=== PATIENT | female | born 1955 | race American Indian/Alaskan Native ===

== ENCOUNTER 2018-12-28 07:10 | Inpatient (IN) | payer MEDICARE ==
[2018-12-23 13:53] LABS: Basophils % (Auto) 0.8 % (0.0-1.8); Eosinophils # (Auto) 0.3 K/mm3 (0.0-0.4); Eosinophils % (Auto) 4.7 % (0.0-4.3); Hematocrit 39.1 % (30.3-42.9); Hemoglobin 12.3 gm/dl (10.1-14.3); Lymphocytes # (Auto) 2.3 K/mm3 (1.2-5.4); Lymphocytes % (Auto) 42.1 % (13.4-35.0); Mean Corpuscular HGB Conc 32 % (30-34); Monocytes # (Auto) 0.5 K/mm3 (0.0-0.8); Monocytes % (Auto) 9.5 % (0.0-7.3); Platelet Count 280 K/mm3 (140-440); Red Blood Count 5.59 M/mm3 (3.65-5.03); Red Cell Distribution Width 17.9 % (13.2-15.2)
[2018-12-23 13:56] LABS: Mean Corpuscular Volume 70 fl (79-97)
--- NOTE | 2018-12-23 13:56 | Anesthesia Consultation ---
Anesthesia Consult and Med Hx Date of service: 12/28/18 - Airway Anesthetic Teeth Evaluation: Good, Partials Mental/Hyoid Distance: Adequate Mallampati Class: Class II Intubation Access Assessment: Good - Pre-Operative Health Status ASA Pre-Surgery Classification: ASA3 Proposed Anesthetic Plan: General - Pulmonary Hx Asthma: Yes (Last used inhaler 2 weeks ago. Allergic) Hx Sleep Apnea: Yes (No CPAP) - Cardiovascular System Hx Hypertension: Yes (over 5 yrs) Hx Coronary Artery Disease: No (States had full w/u to get cleared for surgery and all good) - Central Nervous System Hx Psychiatric Problems: No - Gastrointestinal Hx Ulcer: Yes Hx Gastroesophageal Reflux Disease: Yes - Endocrine Hx Non-Insulin Dependent Diabetes: Yes - Hematic Hx Anemia: Yes - Other Systems Hx Cancer: No
[2018-12-23 14:13] LABS: Albumin 3.8 g/dL (3.9-5); Calcium 9.7 mg/dL (8.4-10.2); Chol/HDL Ratio 4.32 %
[~2018-12-28 07:10] MED LIST: CLEOCIN 600 MG/50 mL 600 MG/50 ML BAG IV NR; FLAGYL 500 MG/100 ML 500 MG/100 ML BAG IV NR; GENTAMICIN IV SCH
[2018-12-28] MEDS ORDERED: MORPHINE IV PRN (07:46)
[2018-12-28] MEDS ORDERED: ZOFRAN IV PRN ×2 (07:46→09:30)
[2018-12-28] MEDS ORDERED: REGLAN IV PRN (07:46)
[2018-12-28] MEDS ORDERED: LOVENOX SUB-Q NR (08:00)
[2018-12-28] MEDS ORDERED: LACTATED RINGERS 1,000 ML IV SCH (08:00)
[2018-12-28] MEDS ORDERED: LEVAQUIN 500MG/100ML 500 MG/100 ML BAG IV NR (08:00)
[2018-12-28] MEDS ORDERED: FLAGYL 500 MG/100 ML 500 MG/100 ML BAG IV NR (08:00)
--- NOTE | 2018-12-28 08:07 | Anesthesia Day of Surgery ---
Anesthesia Day of Surgery - Day of Surgery Patient Examined: Yes Patient H&P Reviewed: Yes Patient is NPO: Yes
[2018-12-28] MEDS ORDERED: PROVENTIL IH PRN (08:08)
[2018-12-28] MEDS ORDERED: NACL 0.9% 1000 ML 1,000 ML ONE ×2 (08:43→11:18)
[2018-12-28] MEDS ORDERED: VERSED IV NR (09:00)
[2018-12-28] MEDS ORDERED: TRANSDERM-SCOP TD ONE (09:17)
[2018-12-28] MEDS ORDERED: GENTAMICIN 200 MG in NACL 0.9% 100 ML IV NR (09:30)
[2018-12-28] MEDS ORDERED: APRESOLINE IV PRN (09:30)
[2018-12-28] MEDS ORDERED: DIPRIVAN 10 MG/ML IV ONE (09:34)
[2018-12-28] MEDS ORDERED: DILAUDID ONE (09:34)
[2018-12-28] MEDS ORDERED: ZEMURON IV ONE (09:35)
[2018-12-28] MEDS ORDERED: XYLOCAINE MPF 2% ONE (09:35)
[2018-12-28] MEDS ORDERED: MARCAINE-EPI 0.5%-1:200,000 INFILTRATI ONE ×2 (09:42→10:41)
[2018-12-28] MEDS ORDERED: XYLOCAINE 1% 20 mL ONE (09:43)
[2018-12-28] MEDS ORDERED: TRANSDERM-SCOP TD SCH (10:00)
[2018-12-28] MEDS ORDERED: NEO SYNEPHRINE/NS Syringe(OR USE) IV ONE (10:30)
[2018-12-28] MEDS ORDERED: NACL 0.9% IR ONE ×2 (10:41→10:43)
[2018-12-28] MEDS ORDERED: XYLOCAINE 1% 20 mL INFILTRATI ONE (10:42)
[2018-12-28] MEDS ORDERED: BLOXIVERZ ONE (11:58)
[2018-12-28] MEDS ORDERED: ROBINUL ONE ×2 (11:58)
[2018-12-28] MEDS ORDERED: ZOFRAN ONE (11:59)
[2018-12-28] MEDS: DILAUDID IV PRN ×3 (12:22→19:24)
[2018-12-28] MEDS ORDERED: NACL 0.9% 1000 ML 1,000 ML IV SCH (12:30)
[2018-12-28] MEDS: MYLICON PO PRN ×2 (12:42→19:24)
[2018-12-28] MEDS: TORADOL IV SCH ×3 (13:00→23:11)
[2018-12-28] MEDS: LACTATED RINGERS 1,000 ML IV SCH ×2 (13:06→22:39)
[2018-12-28] MEDS: LOVENOX SUB-Q SCH (13:55)
--- NOTE | 2018-12-28 14:40 | Post Anesthesia Evaluation ---
- Post Anesthesia Evaluation Patient Participated: Yes Airway Patent: Yes Stable Respiratory Function: Yes Nausea/Vomiting: No Temp > 96.8F: Yes Pain Manageable: Yes Adequeate Hydration: Yes Anesthesia Complications: No Block Receding Appropriately: Not Applicable Patient on Ventilator: No
[2018-12-28] MEDS: GLUCOPHAGE PO SCH (16:25)
[2018-12-29] MEDS: DILAUDID IV PRN (03:01)
[2018-12-29] MEDS: TORADOL IV SCH ×2 (05:35→10:25)
[2018-12-29 06:15] LABS: Basophils % (Auto) 0.5 % (0.0-1.8); Eosinophils # (Auto) 0.1 K/mm3 (0.0-0.4); Eosinophils % (Auto) 0.7 % (0.0-4.3); Hematocrit 31.9 % (30.3-42.9); Lymphocytes # (Auto) 1.7 K/mm3 (1.2-5.4); Lymphocytes % (Auto) 22.5 % (13.4-35.0); Mean Corpuscular HGB Conc 34 % (30-34); Mean Corpuscular Volume 90 fl (79-97); Monocytes # (Auto) 0.6 K/mm3 (0.0-0.8); Monocytes % (Auto) 7.7 % (0.0-7.3); Platelet Count 198 K/mm3 (140-440); Red Blood Count 3.53 M/mm3 (3.65-5.03); Red Cell Distribution Width 14.7 % (13.2-15.2)
[2018-12-29 06:43] LABS: Calcium 8.6 mg/dL (8.4-10.2)
--- NOTE | 2018-12-29 06:55 | Discharge Summary ---
Providers - Providers Date of Admission: 12/28/18 07:10 Date of discharge: 12/29/18 Attending physician: BASIM CORREA Primary care physician: LEONORA YAÑEZ Hospitalization Reason for admission: postop Condition: Good Procedures: 12/28/18: Laparoscopic partial gastrectomy with biliopancreatic limb lengthening Hospital course: 63F admitted after her operation for routine postop care. She was managed on the general surgical floor. She had no major issues overnight, but did c/o shoulder, gas, and neck pain POD1. Patient requested lortab prescription but she already got a prescription for pain medication from the office. She was advised to take extra-strength Tylenol after her pain medication ran out. She tolerated a CLD, ambulated, and was dc home in stable condition. Disposition: DC-01 TO HOME OR SELFCARE Core Measure Documentation - Palliative Care Palliative Care/ Comfort Measures: Not Applicable - Core Measures Any of the following diagnoses?: none - VTE Discharge Requirements Deep Vein Thrombosis/Pulmonary Embolism Present on Admission: No - Acute RI Discharge Requirements Aspirin at discharge: No Reason for no aspirin on DC: Surgical contraindication - Heart Failure Discharge Requirements VIOLET/ARB for LVSD if EF <40%: Not Applicable - Stroke Discharge Requirements Statin for LDL = or >70 mg/dl on DC: Not Applicable Exam - Physical Exam Narrative exam: Gen: AAO, NAD Heart: RRR Lungs: Clear Abd: Obese, soft, NT, ND. Bandages c/d/i. Ext: No LE Edema - Constitutional Vitals: Temp Pulse Resp BP Pulse Ox 98.7 F 65 20 125/52 97 12/29/18 00:23 12/29/18 00:23 12/29/18 00:23 12/29/18 00:23 12/29/18 00:23 Plan Diet: clear liquids Wound: keep clean and dry Special Instructions: no heavy lifting Additional Instructions: Fu as scheduled with Dr Correa Follow up with: LEONORA YAÑEZ MD [Primary Care Provider] - 7 Days
[2018-12-29 07:02] LABS: Bilirubin,Urine NEG (Negative); Blood,Urine NEG (Negative); Color,Urine Yellow (Yellow); Mucus,Urine FEW /HPF; Protein,Urine <15 mg/dL mg/dL (Negative); Urobilinogen,Urine < 2.0 mg/dL (<2.0)
[2018-12-29] MEDS ORDERED: NACL 0.9% 1000 ML 1,000 ML IV ONE (07:24)
[2018-12-29] MEDS ORDERED: NACL 0.9% 500 ML 500 ML IV ONE (08:00)
[2018-12-29] MEDS: GLUCOPHAGE PO SCH (08:14)
[2018-12-29] MEDS: COZAAR PO SCH ×2 (08:14→12:08)
[2018-12-29] MEDS: PROTONIX PO SCH ×2 (08:14→12:09)
[2018-12-29] MEDS: LOVENOX SUB-Q SCH ×2 (08:16→12:09)
[2018-12-29] MEDS: NORCO PO PRN ×2 (08:18→12:42)
[2018-12-29 12:52] VITALS: BP 104/49
== END 2018-12-29 13:33 | disposition home or self-care (01) | DRG 326 ==
LOC: 3A 07:10 → 3B-SURG 12:30
PROVIDERS: ADMIT Specialist; ATTEND Specialist
PROC: 0BQT4ZZ Repair Diaphragm, Percutaneous Endoscopic Approach (ICD-10-PCS; principal; 2018-12-28)
PROC: 0D164ZB Bypass Stomach to Ileum, Percutaneous Endoscopic Approach (ICD-10-PCS; 2018-12-28)
PROC: 0DB84ZZ Excision of Small Intestine, Percutaneous Endoscopic Approach (ICD-10-PCS; 2018-12-28)
PROC: 0DB64ZZ Excision of Stomach, Percutaneous Endoscopic Approach (ICD-10-PCS; 2018-12-28)
DX: K95.89 Other complications of other bariatric procedure (principal); K25.4 Chronic or unspecified gastric ulcer with hemorrhage; K90.9 Intestinal malabsorption, unspecified; Z68.41 Body mass index [BMI] 40.0-44.9, adult; E66.01 Morbid (severe) obesity due to excess calories; J45.909 Unspecified asthma, uncomplicated; D50.9 Iron deficiency anemia, unspecified; K30 Functional dyspepsia; K21.9 Gastro-esophageal reflux disease without esophagitis; K44.9 Diaphragmatic hernia without obstruction or gangrene; E11.22 Type 2 diabetes mellitus with diabetic chronic kidney disease; I12.9 Hypertensive chronic kidney disease with stage 1 through stage 4 chronic kidney disease, or unspecified chronic kidney disease; M54.89 Other dorsalgia; N18.3 Chronic kidney disease, stage 3 (moderate); Y83.2 Surgical operation with anastomosis, bypass or graft as the cause of abnormal reaction of the patient, or of later complication, without mention of misadventure at the time of the procedure; Z83.3 Family history of diabetes mellitus; Z82.49 Family history of ischemic heart disease and other diseases of the circulatory system; Z80.8 Family history of malignant neoplasm of other organs or systems; Z88.0 Allergy status to penicillin; Z88.2 Allergy status to sulfonamides; Z91.041 Radiographic dye allergy status; Z98.84 Bariatric surgery status; Y92.098 Other place in other non-institutional residence as the place of occurrence of the external cause; Z79.84 Long term (current) use of oral hypoglycemic drugs; Z79.51 Long term (current) use of inhaled steroids
CPT/HCPCS: 36415; 80048; 80053; 80061; 81001; 82962; 85025; 88307; 94760; G0378; A4217; J1170; J1580; J1650; J1885; J1956; J2270; J2370; J2405; J2704; J2710; J2765; J7030; J7040; J7120